=== PATIENT | female | born 1940 | race African-American/Black ===

== ENCOUNTER → 2016-11-07 | Outpatient (CLI) | payer OTHER ==
[2016-02-21 11:03] VITALS: BP 152/87
[~2016-11-07] MED LIST: ALLO300T PO; CALC0.25 PO; CARV12.52 PO; CETI10TA16 PO; CIPR250T30 PO; DORZ10DR3 EACHEYE; HYDR-2666 PO; ISOS1TAB2 PO; LEVO100T PO; LOSA25TA4 PO; WARF3TAB54 PO
[2016-11-07 10:23] LABS: BASO % 1 % (0-3); EOS % 5 % (0-3); HEMOGLOBIN 14.1 g/dL (12.0-15.5); LYMPH # 0.9 x10^3/uL (1.0-4.8); LYMPH % 24 % (24-48); MEAN CORPUSCULAR HEMOGLOBIN 29 pg (25-35); MEAN CORPUSCULAR HGB CONC 33 g/dL (31-37); MEAN CORPUSCULAR VOLUME 87 fL (79-100); MONO % 11 % (0-9); NEUT % 59 % (31-73); PLATELET COUNT 191 x10^3/uL (140-400); RED BLOOD COUNT 4.93 x10^6/uL (3.50-5.40); RED CELL DISTRIBUTION WIDTH 13.7 % (11.5-14.5); WHITE BLOOD COUNT 3.8 x10^3/uL (4.0-11.0)
[2016-11-07 10:29] LABS: ALBUMIN 3.2 g/dL (3.4-5.0); CREATININE 2.1 mg/dL (0.6-1.0); GFR 27.8; MAGNESIUM 1.7 mg/dL (1.8-2.4); POTASSIUM 4.3 mmol/L (3.5-5.1)
[2016-11-07 12:41] LABS: PLT ESTIMATE ADEQUATE (ADEQUATE)
[2016-11-08 14:34] LABS: PTH INTACT 82 pg/mL (15-65)
== END | disposition home or self-care (01) ==
LOC: LAB 09:43
PROVIDERS: ATTEND Nurse Practitioner Family
DX: I12.9 Hypertensive chronic kidney disease with stage 1 through stage 4 chronic kidney disease, or unspecified chronic kidney disease (principal); N28.1 Cyst of kidney, acquired; N18.4 Chronic kidney disease, stage 4 (severe); D30.00 Benign neoplasm of unspecified kidney; E87.2 Acidosis; Z68.31 Body mass index [BMI] 31.0-31.9, adult; Z90.5 Acquired absence of kidney
CPT/HCPCS: 36415; 80069; 83735; 83970; 85007; 85027

== ENCOUNTER 2017-09-16 00:04 | Inpatient (IN) | payer MEDICARE, OTHER ==
[2017-09-16 00:33] LABS: BASO % 0 % (0-3); EOS % 0 % (0-3); HEMATOCRIT 44.9 % (36.0-47.0); HEMOGLOBIN 14.6 g/dL (12.0-15.5); LYMPH # 0.1 x10^3/uL (1.0-4.8); LYMPH % 2 % (24-48); MEAN CORPUSCULAR HEMOGLOBIN 29 pg (25-35); MEAN CORPUSCULAR HGB CONC 32 g/dL (31-37); MEAN CORPUSCULAR VOLUME 89 fL (79-100); MONO # 0.2 x10^3/uL (0.0-1.1); MONO % 4 % (0-9); NEUT # 5.5 x10^3uL (1.8-7.7); NEUT % 93 % (31-73); PLATELET COUNT 138 x10^3/uL (140-400); RED BLOOD COUNT 5.05 x10^6/uL (3.50-5.40); RED CELL DISTRIBUTION WIDTH 14.2 % (11.5-14.5); WHITE BLOOD COUNT 5.9 x10^3/uL (4.0-11.0)
[2017-09-16 00:41] LABS: ANION GAP 10 (6-14); BLOOD UREA NITROGEN 24 mg/dL (7-20); BUN/CREATININE RATIO 12 (6-20); CALCIUM 9.6 mg/dL (8.5-10.1); CARBON DIOXIDE 24 mmol/L (21-32); CHLORIDE 108 mmol/L (98-107); GFR 29.3; GLUCOSE 115 mg/dL (70-99); POTASSIUM 3.5 mmol/L (3.5-5.1); SODIUM 142 mmol/L (136-145)
[2017-09-16 00:47] LABS: ALBUMIN 3.3 g/dL (3.4-5.0); ALBUMIN/GLOBULIN RATIO 0.8 (1.0-1.7); ALK PHOS 162 U/L (46-116); ALT (SGPT) 346 U/L (14-59); AST (SGOT) 581 U/L (15-37); LIPASE 144 U/L (73-393); TOTAL BILIRUBIN 3.3 mg/dL (0.2-1.0); TOTAL PROTEIN 7.3 g/dL (6.4-8.2)
[2017-09-16 00:48] LABS: BILIRUBIN,URINE SMALL (NEG); CLARITY,URINE CLEAR; COLOR,URINE YELLOW; GLUCOSE,URINE NEGATIVE (NEG); NITRITE,URINE NEGATIVE (NEG); PROTEIN,URINE NEGATIVE (NEG-TRACE); UROBILINOGEN,URINE >=8.0 mg/dL (0.2 mg/dL)
[2017-09-16 00:49] LABS: ADD MAN DIFF? YES
[2017-09-16 00:55] LABS: TROPONINI < 0.017 ng/mL (0.000-0.055)
[2017-09-16 00:55] LABS: CKMB INDEX 1.1 % (0-4); CKMB MASS 1.2 ng/mL (0.0-3.6); CREATINE KINASE 111 U/L (26-192)
[2017-09-16] MEDS: IV NORMAL SALINE 1000ML BAG 1,000 ML IV ×3 (00:55→15:23)
[2017-09-16] MEDS: ONDANSETRON PF 4 MG/2 ML VIAL. IV (00:55)
[2017-09-16 00:59] LABS: BACTERIA,URINE 0 /HPF (0-FEW); RBC,URINE 0 /HPF (0-2); SQUAMOUS EPITHELIAL CELL,UR FEW /LPF; WBC,URINE 0 /HPF (0-4)
[2017-09-16 01:30] LABS: INFLUENZA A PATIENT NEGATIVE (NEGATIVE); INFLUENZA B PATIENT NEGATIVE (NEGATIVE); OBC FLU VALID
[2017-09-16 01:39] LABS: % BANDS 16 % (0-9); % EOS 2 % (0-5); % LYMPHS 1 % (24-48); % MONOS 7 % (0-10); % SEGS 74 % (35-66); PLT ESTIMATE ADEQUATE (ADEQUATE); TOXIC GRANULATION SLIGHT; TOXIC VACUOLATION SLIGHT
[2017-09-16] MEDS: ACETAMINOPHEN 500 MG TABLET PO (02:09)
[2017-09-16] MEDS ORDERED: ONDANSETRON PF 4 MG/2 ML VIAL. IV ×2 (03:00→09:30)
[2017-09-16 05:15] LABS: LACTIC ACID 1.9 mmol/L (0.4-2.0)
[2017-09-16] MEDS ORDERED: MORPHINE SULFATE 4 MG/ML DISP.SYRIN. IV (09:30)
[2017-09-16] MEDS ORDERED: traMADol 50 MG TABLET PO (09:30)
[2017-09-16] MEDS ORDERED: DOCUSATE SODIUM 100 MG CAPSULE. PO (09:30)
[2017-09-16 09:50] LABS: INR 3.8 (0.8-1.1); PROTHROMBIN TIME PATIENT 36.5 SEC (11.7-14.0)
[2017-09-16] MEDS: CALCITRIOL 0.25 MCG CAPSULE. PO (10:00)
[2017-09-16] MEDS: LOSARTAN POTASSIUM 25 MG TABLET. PO (10:00)
[2017-09-16] MEDS: ALLOPURINOL 100 MG TABLET. PO (10:00)
[2017-09-16] MEDS: DORZOLAMIDE 2% OPHTH SOLUTION 10ML BOTTLE. OU (10:00)
[2017-09-16] MEDS: LEVOTHYROXINE 100 MCG TABLET PO (10:41)
[2017-09-16] MEDS: CEFEPIME HCL IV Push 1 GM VIAL. IVP (10:41)
[2017-09-16] MEDS: CETIRIZINE HCL 10 MG TABLET. PO (10:42)
[2017-09-16] MEDS: CARVEDILOL 12.5 MG TABLET. PO ×2 (10:42→16:52)
[2017-09-16] MEDS: SODIUM BICARBONATE 650 MG TABLET. PO ×2 (10:43→20:25)
[2017-09-16] MEDS: LACTOBACILLUS RHAMNOSUS GG 1 CAPSULE. PO ×2 (12:02→20:25)
[2017-09-16] MEDS ORDERED: CEFEPIME HCL 1 GM in IV DEXTROSE 5% 50 ML IV (14:00)
[2017-09-16] MEDS: ACETAMINOPHEN 325 MG TABLET. PO (20:25)
[2017-09-16] MEDS: hydrALAZINE 20 MG/ML VIAL. IVP (20:26)
[2017-09-16] MEDS: COMBIGAN EYE DROPS OU (20:43)
[2017-09-16] MEDS: TRAVATAN EYE DROPS OU (20:43)
[2017-09-17] MEDS: IV NORMAL SALINE 1000ML BAG 1,000 ML IV ×2 (03:04→21:58)
[2017-09-17 04:26] LABS: ADD MAN DIFF? NO
[2017-09-17 04:29] LABS: BASO % 0 % (0-3); EOS # 0.1 x10^3/uL (0.0-0.7); EOS % 1 % (0-3); HEMOGLOBIN 13.2 g/dL (12.0-15.5); LYMPH # 0.6 x10^3/uL (1.0-4.8); LYMPH % 7 % (24-48); MEAN CORPUSCULAR HEMOGLOBIN 29 pg (25-35); MEAN CORPUSCULAR HGB CONC 32 g/dL (31-37); MEAN CORPUSCULAR VOLUME 89 fL (79-100); MONO # 0.8 x10^3/uL (0.0-1.1); MONO % 9 % (0-9); NEUT # 7.2 x10^3uL (1.8-7.7); NEUT % 83 % (31-73); PLATELET COUNT 128 x10^3/uL (140-400); RED BLOOD COUNT 4.62 x10^6/uL (3.50-5.40); RED CELL DISTRIBUTION WIDTH 13.8 % (11.5-14.5); WHITE BLOOD COUNT 8.6 x10^3/uL (4.0-11.0)
[2017-09-17 04:41] LABS: INR 3.3 (0.8-1.1)
[2017-09-17 04:53] LABS: ALBUMIN 2.7 g/dL (3.4-5.0); ALK PHOS 112 U/L (46-116); ALT (SGPT) 203 U/L (14-59); ANION GAP 8 (6-14); AST (SGOT) 126 U/L (15-37); BLOOD UREA NITROGEN 21 mg/dL (7-20); CARBON DIOXIDE 24 mmol/L (21-32); CHLORIDE 109 mmol/L (98-107); CREATININE 1.9 mg/dL (0.6-1.0); DIRECT BILIRUBIN 2.1 mg/dL (0.0-0.2); GFR 31.1; GLUCOSE 84 mg/dL (70-99); SODIUM 141 mmol/L (136-145); TOTAL BILIRUBIN 3.3 mg/dL (0.2-1.0); TOTAL PROTEIN 6.4 g/dL (6.4-8.2)
[2017-09-17] MEDS ORDERED: WARFARIN 3 MG TABLET. PO (09:00)
[2017-09-17] MEDS: COMBIGAN EYE DROPS OU ×2 (09:00→21:04)
[2017-09-17] MEDS: LACTOBACILLUS RHAMNOSUS GG 1 CAPSULE. PO ×2 (11:33→20:59)
[2017-09-17] MEDS: CEFEPIME HCL IV Push 1 GM VIAL. IVP (11:33)
[2017-09-17] MEDS: CETIRIZINE HCL 10 MG TABLET. PO (11:33)
[2017-09-17] MEDS: SODIUM BICARBONATE 650 MG TABLET. PO ×2 (11:33→20:59)
[2017-09-17] MEDS: LEVOTHYROXINE 100 MCG TABLET PO (11:33)
[2017-09-17] MEDS: CARVEDILOL 12.5 MG TABLET. PO ×2 (11:34→17:08)
[2017-09-17] MEDS: ISOSORBIDE DINITRATE 10 MG TABLET. PO ×2 (13:59→21:00)
[2017-09-17] MEDS: hydrALAZINE 25 MG TABLET PO ×2 (14:02→20:58)
[2017-09-17] MEDS ORDERED: HYDRALAZINE HCL PO (21:00)
[2017-09-17] MEDS ORDERED: ISOSORB DINIT PO (21:00)
[2017-09-17] MEDS: TRAVATAN EYE DROPS OU (21:04)
[2017-09-18 06:53] LABS: ADD MAN DIFF? NO
[2017-09-18 07:00] LABS: BASO % 0 % (0-3); EOS # 0.1 x10^3/uL (0.0-0.7); EOS % 2 % (0-3); HEMATOCRIT 37.2 % (36.0-47.0); HEMOGLOBIN 11.9 g/dL (12.0-15.5); LYMPH % 15 % (24-48); MEAN CORPUSCULAR HEMOGLOBIN 28 pg (25-35); MEAN CORPUSCULAR HGB CONC 32 g/dL (31-37); MEAN CORPUSCULAR VOLUME 89 fL (79-100); MONO # 0.7 x10^3/uL (0.0-1.1); MONO % 10 % (0-9); NEUT # 4.8 x10^3uL (1.8-7.7); NEUT % 73 % (31-73); PLATELET COUNT 125 x10^3/uL (140-400); WHITE BLOOD COUNT 6.6 x10^3/uL (4.0-11.0)
[2017-09-18] MEDS: LEVOTHYROXINE 100 MCG TABLET PO (07:10)
[2017-09-18 07:14] LABS: INR 2.3 (0.8-1.1); PROTHROMBIN TIME PATIENT 24.7 SEC (11.7-14.0)
[2017-09-18 07:20] LABS: ALBUMIN 2.5 g/dL (3.4-5.0); ALK PHOS 91 U/L (46-116); ALT (SGPT) 119 U/L (14-59); ANION GAP 7 (6-14); AST (SGOT) 50 U/L (15-37); BLOOD UREA NITROGEN 27 mg/dL (7-20); CALCIUM 8.6 mg/dL (8.5-10.1); CARBON DIOXIDE 23 mmol/L (21-32); CHLORIDE 111 mmol/L (98-107); CREATININE 1.9 mg/dL (0.6-1.0); DIRECT BILIRUBIN 0.5 mg/dL (0.0-0.2); GFR 31.1; GLUCOSE 93 mg/dL (70-99); POTASSIUM 3.9 mmol/L (3.5-5.1); SODIUM 141 mmol/L (136-145); TOTAL BILIRUBIN 1.3 mg/dL (0.2-1.0); TOTAL PROTEIN 5.9 g/dL (6.4-8.2)
[2017-09-18] MEDS: hydrALAZINE 25 MG TABLET PO ×2 (08:03→20:36)
[2017-09-18] MEDS: CETIRIZINE HCL 10 MG TABLET. PO (08:04)
[2017-09-18] MEDS: LACTOBACILLUS RHAMNOSUS GG 1 CAPSULE. PO ×2 (08:05→20:38)
[2017-09-18] MEDS: SODIUM BICARBONATE 650 MG TABLET. PO ×2 (08:05→20:37)
[2017-09-18] MEDS: ISOSORBIDE DINITRATE 10 MG TABLET. PO ×2 (08:05→20:37)
[2017-09-18] MEDS: COMBIGAN EYE DROPS OU ×2 (08:07→20:35)
[2017-09-18] MEDS: CARVEDILOL 12.5 MG TABLET. PO ×2 (08:08→17:24)
[2017-09-18] MEDS: CEFEPIME HCL IV Push 1 GM VIAL. IVP (09:29)
[2017-09-18] MEDS: IV NORMAL SALINE 1000ML BAG 1,000 ML IV (10:45)
[2017-09-18] MEDS: POLYETHYLENE GLYCOL 3350 17 GM PACKET. PO (12:00)
[2017-09-18] MEDS: PANTOPRAZOLE 40 MG TABLET.DR. PO (12:30)
[2017-09-18] MEDS: TRAVATAN EYE DROPS OU (20:35)
[2017-09-19 04:46] LABS: ADD MAN DIFF? NO
[2017-09-19 04:55] LABS: BASO % 1 % (0-3); EOS # 0.2 x10^3/uL (0.0-0.7); EOS % 3 % (0-3); HEMATOCRIT 36.4 % (36.0-47.0); HEMOGLOBIN 11.8 g/dL (12.0-15.5); LYMPH # 1.1 x10^3/uL (1.0-4.8); LYMPH % 20 % (24-48); MEAN CORPUSCULAR HEMOGLOBIN 29 pg (25-35); MEAN CORPUSCULAR HGB CONC 33 g/dL (31-37); MEAN CORPUSCULAR VOLUME 89 fL (79-100); MONO # 0.8 x10^3/uL (0.0-1.1); MONO % 15 % (0-9); NEUT # 3.3 x10^3uL (1.8-7.7); NEUT % 62 % (31-73); PLATELET COUNT 136 x10^3/uL (140-400); RED BLOOD COUNT 4.11 x10^6/uL (3.50-5.40); RED CELL DISTRIBUTION WIDTH 13.9 % (11.5-14.5); WHITE BLOOD COUNT 5.4 x10^3/uL (4.0-11.0)
[2017-09-19 05:02] LABS: INR 1.7 (0.8-1.1); PROTHROMBIN TIME PATIENT 19.6 SEC (11.7-14.0)
[2017-09-19 05:25] LABS: ALBUMIN 2.6 g/dL (3.4-5.0); ALBUMIN/GLOBULIN RATIO 0.7 (1.0-1.7); ALK PHOS 91 U/L (46-116); ALT (SGPT) 96 U/L (14-59); ANION GAP 8 (6-14); AST (SGOT) 32 U/L (15-37); BLOOD UREA NITROGEN 23 mg/dL (7-20); BUN/CREATININE RATIO 12 (6-20); CALCIUM 9.1 mg/dL (8.5-10.1); CARBON DIOXIDE 24 mmol/L (21-32); CHLORIDE 112 mmol/L (98-107); CREATININE 1.9 mg/dL (0.6-1.0); GFR 31.1; GLUCOSE 87 mg/dL (70-99); POTASSIUM 3.6 mmol/L (3.5-5.1); SODIUM 144 mmol/L (136-145); TOTAL PROTEIN 6.1 g/dL (6.4-8.2)
[2017-09-19] MEDS: LEVOTHYROXINE 100 MCG TABLET PO (05:55)
[2017-09-19] MEDS: POLYETHYLENE GLYCOL 3350 17 GM PACKET. PO (09:00)
[2017-09-19] MEDS: hydrALAZINE 25 MG TABLET PO ×2 (09:13→20:41)
[2017-09-19] MEDS: ISOSORBIDE DINITRATE 10 MG TABLET. PO ×2 (09:15→20:41)
[2017-09-19] MEDS: CARVEDILOL 12.5 MG TABLET. PO ×2 (09:16→17:38)
[2017-09-19] MEDS: LACTOBACILLUS RHAMNOSUS GG 1 CAPSULE. PO ×2 (09:16→20:42)
[2017-09-19] MEDS: PANTOPRAZOLE 40 MG TABLET.DR. PO (09:16)
[2017-09-19] MEDS: SODIUM BICARBONATE 650 MG TABLET. PO ×2 (09:17→20:42)
[2017-09-19] MEDS: CETIRIZINE HCL 10 MG TABLET. PO (09:17)
[2017-09-19] MEDS: COMBIGAN EYE DROPS OU ×2 (09:20→21:00)
[2017-09-19] MEDS: CEFEPIME HCL IV Push 1 GM VIAL. IVP (09:20)
[2017-09-19] MEDS: WARFARIN 3 MG TABLET. PO (17:38)
[2017-09-19] MEDS: TRAVATAN EYE DROPS OU (21:00)
[2017-09-20 04:57] LABS: INR 1.4 (0.8-1.1); PROTHROMBIN TIME PATIENT 16.8 SEC (11.7-14.0)
[2017-09-20 07:25] LABS: POC GLUCOSE 102 mg/dL (70-99)
[2017-09-20] MEDS: CARVEDILOL 12.5 MG TABLET. PO ×2 (08:00→17:00)
[2017-09-20] MEDS: PANTOPRAZOLE 40 MG TABLET.DR. PO (08:21)
[2017-09-20] MEDS: CETIRIZINE HCL 10 MG TABLET. PO (08:22)
[2017-09-20] MEDS: LACTOBACILLUS RHAMNOSUS GG 1 CAPSULE. PO ×2 (08:22→21:14)
[2017-09-20] MEDS: ISOSORBIDE DINITRATE 10 MG TABLET. PO ×2 (08:22→21:12)
[2017-09-20] MEDS: ACETAMINOPHEN 325 MG TABLET. PO (08:23)
[2017-09-20] MEDS: hydrALAZINE 25 MG TABLET PO ×2 (08:23→21:13)
[2017-09-20] MEDS: POLYETHYLENE GLYCOL 3350 17 GM PACKET. PO (08:23)
[2017-09-20] MEDS: SODIUM BICARBONATE 650 MG TABLET. PO ×2 (08:24→21:13)
[2017-09-20] MEDS: COMBIGAN EYE DROPS OU ×2 (08:28→21:00)
[2017-09-20] MEDS: CEFEPIME HCL IV Push 1 GM VIAL. IVP (11:02)
[2017-09-20] MEDS: LEVOTHYROXINE 100 MCG TABLET PO (11:02)
[2017-09-20] MEDS: WARFARIN 3 MG TABLET. PO (16:48)
[2017-09-20] MEDS: TRAVATAN EYE DROPS OU (21:00)
[2017-09-21] MEDS: LEVOTHYROXINE 100 MCG TABLET PO (05:18)
[2017-09-21 05:22] LABS: ADD MAN DIFF? NO
[2017-09-21 05:29] LABS: BASO # 0.1 x10^3/uL (0.0-0.2); BASO % 1 % (0-3); EOS # 0.2 x10^3/uL (0.0-0.7); EOS % 4 % (0-3); HEMATOCRIT 38.2 % (36.0-47.0); HEMOGLOBIN 12.3 g/dL (12.0-15.5); LYMPH # 1.3 x10^3/uL (1.0-4.8); LYMPH % 25 % (24-48); MEAN CORPUSCULAR HEMOGLOBIN 28 pg (25-35); MEAN CORPUSCULAR HGB CONC 32 g/dL (31-37); MEAN CORPUSCULAR VOLUME 88 fL (79-100); MONO # 0.7 x10^3/uL (0.0-1.1); MONO % 14 % (0-9); NEUT % 57 % (31-73); PLATELET COUNT 155 x10^3/uL (140-400); RED BLOOD COUNT 4.35 x10^6/uL (3.50-5.40); RED CELL DISTRIBUTION WIDTH 13.7 % (11.5-14.5); WHITE BLOOD COUNT 5.4 x10^3/uL (4.0-11.0)
[2017-09-21 05:52] LABS: INR 1.3 (0.8-1.1); PROTHROMBIN TIME PATIENT 15.8 SEC (11.7-14.0)
[2017-09-21 06:03] LABS: ALBUMIN 2.7 g/dL (3.4-5.0); ALBUMIN/GLOBULIN RATIO 0.7 (1.0-1.7); ALK PHOS 81 U/L (46-116); ALT (SGPT) 52 U/L (14-59); ANION GAP 9 (6-14); AST (SGOT) 20 U/L (15-37); BLOOD UREA NITROGEN 17 mg/dL (7-20); BUN/CREATININE RATIO 10 (6-20); CALCIUM 8.9 mg/dL (8.5-10.1); CARBON DIOXIDE 26 mmol/L (21-32); CHLORIDE 109 mmol/L (98-107); CREATININE 1.7 mg/dL (0.6-1.0); GFR 35.4; GLUCOSE 90 mg/dL (70-99); POTASSIUM 3.7 mmol/L (3.5-5.1); SODIUM 144 mmol/L (136-145); TOTAL BILIRUBIN 0.9 mg/dL (0.2-1.0); TOTAL PROTEIN 6.4 g/dL (6.4-8.2)
[2017-09-21] MEDS: PANTOPRAZOLE 40 MG TABLET.DR. PO (07:44)
[2017-09-21] MEDS: hydrALAZINE 25 MG TABLET PO ×2 (07:45→20:48)
[2017-09-21] MEDS: ISOSORBIDE DINITRATE 10 MG TABLET. PO ×2 (07:47→20:48)
[2017-09-21] MEDS: COMBIGAN EYE DROPS OU ×2 (09:00→21:00)
[2017-09-21] MEDS: POLYETHYLENE GLYCOL 3350 17 GM PACKET. PO (09:00)
[2017-09-21] MEDS: SODIUM BICARBONATE 650 MG TABLET. PO ×2 (09:06→20:48)
[2017-09-21] MEDS: LACTOBACILLUS RHAMNOSUS GG 1 CAPSULE. PO ×2 (09:06→20:48)
[2017-09-21] MEDS: CARVEDILOL 12.5 MG TABLET. PO ×2 (09:06→17:35)
[2017-09-21] MEDS: CETIRIZINE HCL 10 MG TABLET. PO (09:12)
[2017-09-21] MEDS: CEFEPIME HCL IV Push 1 GM VIAL. IVP (09:57)
[2017-09-21] MEDS: hydrALAZINE 20 MG/ML VIAL. IVP (17:36)
[2017-09-21] MEDS: TRAVATAN EYE DROPS OU (21:00)
[2017-09-22 05:49] LABS: INR 1.3 (0.8-1.1); PROTHROMBIN TIME PATIENT 15.7 SEC (11.7-14.0)
[2017-09-22] MEDS: LEVOTHYROXINE 100 MCG TABLET PO (06:00)
[2017-09-22] MEDS ORDERED: PROCHLORPERAZINE 10 MG/2 ML VIAL. IV (07:00)
[2017-09-22] MEDS ORDERED: ONDANSETRON PF 4 MG/2 ML VIAL. IV (07:00)
[2017-09-22] MEDS ORDERED: MORPHINE SULFATE 4 MG/ML DISP.SYRIN. IV (07:00)
[2017-09-22] MEDS ORDERED: fentaNYL PF VIAL 100 MCG/2 ML VIAL IV ×2 (07:00)
[2017-09-22] MEDS ORDERED: HYDROmorphone 2 MG/ML VIAL IV (07:00)
[2017-09-22] MEDS ORDERED: LIDOCAINE 1% PF 2 ML VIAL. ID (07:00)
[2017-09-22] MEDS: PANTOPRAZOLE 40 MG TABLET.DR. PO (07:30)
[2017-09-22] MEDS: ISOSORBIDE DINITRATE 10 MG TABLET. PO ×2 (08:01→22:41)
[2017-09-22] MEDS: CARVEDILOL 12.5 MG TABLET. PO ×2 (08:01→22:42)
[2017-09-22] MEDS: COMBIGAN EYE DROPS OU ×2 (08:02→20:23)
[2017-09-22] MEDS: hydrALAZINE 25 MG TABLET PO ×3 (08:02→22:40)
[2017-09-22] MEDS: POLYETHYLENE GLYCOL 3350 17 GM PACKET. PO (09:00)
[2017-09-22] MEDS: SODIUM BICARBONATE 650 MG TABLET. PO ×2 (09:00→22:41)
[2017-09-22] MEDS: CETIRIZINE HCL 10 MG TABLET. PO (09:00)
[2017-09-22] MEDS: LACTOBACILLUS RHAMNOSUS GG 1 CAPSULE. PO ×2 (09:00→22:41)
[2017-09-22] MEDS: CEFEPIME HCL IV Push 1 GM VIAL. IVP (10:07)
[2017-09-22] MEDS: IV NORMAL SALINE 1000ML BAG 1,000 ML IV (16:28)
[2017-09-22] MEDS ORDERED: IOHEXOL 300 MG/ML 100ML VIAL. (17:17)
[2017-09-22] MEDS: IOHEXOL 300 MG/ML 100ML VIAL. INT CAT (17:58)
[2017-09-22] MEDS ORDERED: hydrALAZINE 20 MG/ML VIAL. (18:44)
[2017-09-22] MEDS: hydrALAZINE 20 MG/ML VIAL. IVP (18:54)
[2017-09-22] MEDS: TRAVATAN EYE DROPS OU (20:23)
[2017-09-22] MEDS: IV RINGERS,LACTATED 1000ML 1,000 ML IV (20:32)
[2017-09-23] MEDS: HYDROcodone/APAP 5/325MG 1 TAB TABLET PO (01:54)
[2017-09-23] MEDS: LEVOTHYROXINE 100 MCG TABLET PO (06:00)
[2017-09-23 06:05] LABS: INR 1.2 (0.8-1.1); PROTHROMBIN TIME PATIENT 14.9 SEC (11.7-14.0)
[2017-09-23] MEDS: CARVEDILOL 12.5 MG TABLET. PO (07:50)
[2017-09-23] MEDS: PANTOPRAZOLE 40 MG TABLET.DR. PO (07:50)
[2017-09-23] MEDS: hydrALAZINE 25 MG TABLET PO (07:51)
[2017-09-23] MEDS: ISOSORBIDE DINITRATE 10 MG TABLET. PO (07:54)
[2017-09-23] MEDS: LACTOBACILLUS RHAMNOSUS GG 1 CAPSULE. PO (08:43)
[2017-09-23] MEDS: COMBIGAN EYE DROPS OU (08:43)
[2017-09-23] MEDS: POLYETHYLENE GLYCOL 3350 17 GM PACKET. PO (08:43)
[2017-09-23] MEDS: SODIUM BICARBONATE 650 MG TABLET. PO (08:44)
[2017-09-23] MEDS: CETIRIZINE HCL 10 MG TABLET. PO (08:44)
[2017-09-23] MEDS: CEFEPIME HCL IV Push 1 GM VIAL. IVP (09:21)
[2017-09-23] MEDS: IV NORMAL SALINE 1000ML BAG 1,000 ML IV (12:00)
[2017-09-23] MEDS ORDERED: CARVEDILOL 12.5 MG TABLET. PO (17:00)
== END 2017-09-23 14:00 | disposition home or self-care (01) | DRG 445 ==
LOC: ER 00:04 → 5 NORTH 03:15
PROVIDERS: Internal Medicine
PROC: BF101ZZ Fluoroscopy of Bile Ducts using Low Osmolar Contrast (ICD-10-PCS; principal; 2017-09-22 17:40)
PROC: 0F798ZZ Dilation of Common Bile Duct, Via Natural or Artificial Opening Endoscopic (ICD-10-PCS; 2017-09-22 17:40)
DX: K80.31 Calculus of bile duct with cholangitis, unspecified, with obstruction (principal); N18.4 Chronic kidney disease, stage 4 (severe); D68.9 Coagulation defect, unspecified; I48.91 Unspecified atrial fibrillation; R65.10 Systemic inflammatory response syndrome (SIRS) of non-infectious origin without acute organ dysfunction; N17.9 Acute kidney failure, unspecified; E86.0 Dehydration; E03.9 Hypothyroidism, unspecified; I12.9 Hypertensive chronic kidney disease with stage 1 through stage 4 chronic kidney disease, or unspecified chronic kidney disease; K21.9 Gastro-esophageal reflux disease without esophagitis; K42.9 Umbilical hernia without obstruction or gangrene; M19.90 Unspecified osteoarthritis, unspecified site; Z79.899 Other long term (current) drug therapy; Z90.49 Acquired absence of other specified parts of digestive tract; Z90.5 Acquired absence of kidney; Z88.0 Allergy status to penicillin
CPT/HCPCS: 36415; 51701; 71045; 74176; 74181; 74328; 80048; 80053; 80076; 81001; 82553; 82962; 83605; 83690; 84484; 85007; 85025; 85610; 87040; 87804; 87804-59; 93005; 96361; 96365; 96366; 96375; 97161-GP; 97166-GO; 99285; 99285-25; C1757; J0360; J0692; J1956; J2405; J7030; Q9967

== ENCOUNTER 2018-12-19 13:13 | Emergency (ER) | payer OTHER ==
[~2018-12-19] VITALS: Ht 160 cm; Wt 73.0 kg
[~2018-12-19 13:13] MED LIST changes: +BRIM5DRO2 OP; +CARV12.511 PO; -CARV12.52 PO; -DORZ10DR3 EACHEYE; +DORZ10DR6 EACHEYE; -HYDR-2666 PO; +HYDR-2761 PO; +HYDR-2868 PO; +ISOS30TA4 PO; -LOSA25TA4 PO; +LOSA25TA54 PO; +SODI650T PO; +TRAV5DRO EACHEYE
--- NOTE | 2018-12-19 14:57 | PHYS DOC ---
Past Medical History Past Medical History: A-Fib, Arthritis, Hypertension, Hypothyroid Additional Past Medical Histor: Thyroid Past Surgical History: Cholecystectomy, Other Additional Past Surgical Histo: L. NEPHRECTOMY Alcohol Use: None Drug Use: None Adult General Chief Complaint Chief Complaint: ABDOMINAL PAIN HPI HPI Patient is a 78 year old female who presents with intermittent abdominal pain has been ongoing since Monday. The patient states she had the same pain 6-7 months ago and ended up being admitted to the hospital for a blocked gallbladder duct. Patient currently has no pain and no symptoms. Her pain as 0 out of 10. States she took an [place] at home which made her pain disappear. Review of Systems Review of Systems Constitutional: Denies fever or chills [] Eyes: Denies change in visual acuity, redness, or eye pain [] HENT: Denies nasal congestion or sore throat [] Respiratory: Denies cough or shortness of breath [] Cardiovascular: No additional information not addressed in HPI [] GI: Reports abdominal pain intermittently Denies nausea, vomiting, bloody stools or diarrhea [] : Denies dysuria or hematuria [] Musculoskeletal: Denies back pain or joint pain [] Integument: Denies rash or skin lesions [] Neurologic: Denies headache, focal weakness or sensory changes [] Endocrine: Denies polyuria or polydipsia [] Complete systems were reviewed and found to be within normal limits, except as documented in this note. Allergies Allergies Allergies Coded Allergies Type Severity Reaction Last Updated Verified Penicillins Allergy Intermediate RASH 09/22/17 Yes Physical Exam Physical Exam Constitutional: Well developed, well nourished, no acute distress, non-toxic appearance. [] HENT: Normocephalic, atraumatic, bilateral external ears normal, oropharynx moist, no oral exudates, nose normal. [] Eyes: PERRLA, EOMI, conjunctiva normal, no discharge. [] Neck: Normal range of motion, no tenderness, supple, no stridor. [] Cardiovascular:Heart rate regular rhythm, no murmur [] Lungs & Thorax: Bilateral breath sounds clear to auscultation [] Abdomen: Bowel sounds normal, soft, no tenderness, no masses, no pulsatile masses. [] Skin: Warm, dry, no erythema, no rash. [] Back: No tenderness, no CVA tenderness. [] Extremities: No tenderness, no cyanosis, no clubbing, ROM intact, no edema. [] Neurologic: Alert and oriented X 3, normal motor function, normal sensory function, no focal deficits noted. [] Psychologic: Affect normal, judgement normal, mood normal. [] Current Patient Data Vital Signs Vital Signs Date Time Temp Pulse Resp B/P (MAP) Pulse Ox O2 Delivery O2 Flow Rate FiO2 12/19/18 17:27 54 20 177/94 (121) 97 Room Air 12/19/18 14:22 97.9 97.9 Lab Values Laboratory Tests Test 12/19/18 15:15 12/19/18 18:20 White Blood Count 4.7 x10^3/uL (4.0-11.0) Red Blood Count 5.26 x10^6/uL (3.50-5.40) Hemoglobin 15.4 g/dL (12.0-15.5) Hematocrit 46.6 % (36.0-47.0) Mean Corpuscular Volume 89 fL (79-100) Mean Corpuscular Hemoglobin 29 pg (25-35) Mean Corpuscular Hemoglobin Concent 33 g/dL (31-37) Red Cell Distribution Width 13.8 % (11.5-14.5) Platelet Count 211 x10^3/uL (140-400) Neutrophils (%) (Auto) 65 % (31-73) Lymphocytes (%) (Auto) 21 % (24-48) L Monocytes (%) (Auto) 12 % (0-9) H Eosinophils (%) (Auto) 1 % (0-3) Basophils (%) (Auto) 1 % (0-3) Neutrophils # (Auto) 3.0 x10^3uL (1.8-7.7) Lymphocytes # (Auto) 1.0 x10^3/uL (1.0-4.8) Monocytes # (Auto) 0.5 x10^3/uL (0.0-1.1) Eosinophils # (Auto) 0.0 x10^3/uL (0.0-0.7) Basophils # (Auto) 0.1 x10^3/uL (0.0-0.2) Sodium Level 141 mmol/L (136-145) Potassium Level 4.2 mmol/L (3.5-5.1) Chloride Level 106 mmol/L (98-107) Carbon Dioxide Level 26 mmol/L (21-32) Anion Gap 9 (6-14) Blood Urea Nitrogen 17 mg/dL (7-20) Creatinine 2.2 mg/dL (0.6-1.0) H Estimated GFR (Cockcroft-Gault) 26.2 BUN/Creatinine Ratio 8 (6-20) Glucose Level 98 mg/dL (70-99) Calcium Level 9.8 mg/dL (8.5-10.1) Total Bilirubin 1.1 mg/dL (0.2-1.0) H Aspartate Amino Transferase (AST) 70 U/L (15-37) H Alanine Aminotransferase (ALT) 69 U/L (14-59) H Alkaline Phosphatase 121 U/L (46-116) H Total Protein 7.9 g/dL (6.4-8.2) Albumin 3.6 g/dL (3.4-5.0) Albumin/Globulin Ratio 0.8 (1.0-1.7) L Lipase 164 U/L (73-393) Urine Collection Type Unknown Urine Color Yellow Urine Clarity Clear Urine pH 7.0 Urine Specific [place] 1.010 Urine Protein Negative mg/dL (NEG-TRACE) Urine Glucose (UA) Negative mg/dL (NEG) Urine Ketones (Stick) Negative mg/dL (NEG) Urine Blood Negative (NEG) Urine Nitrite Negative (NEG) Urine Bilirubin Negative (NEG) Urine Urobilinogen Dipstick 1.0 mg/dL (0.2 mg/dL) Urine Leukocyte Esterase Negative (NEG) Urine RBC 0 /HPF (0-2) Urine WBC Rare /HPF (0-4) Urine Squamous Epithelial Cells Mod /LPF Urine Bacteria 0 /HPF (0-FEW) Urine Mucus Slight /LPF Laboratory Tests 12/19/18 15:15 Laboratory Tests 12/19/18 15:15 EKG EKG [] Radiology/Procedures Radiology/Procedures [][facility] [address] [facility] [place] [address] IMAGING REPORT Signed PATIENT: LASHAWN HINOJOSA ACCOUNT: [id number] : 1940 LOCATION: ER AGE: 78 SEX: F EXAM STATUS: REG ER ORD. PHYSICIAN: HERMINIO ALMANZA APRN REASON: abd pain PROCEDURE: CT ABDOMEN PELVIS WO CONTRAST Examination: CT ABDOMEN PELVIS WO CONTRAST History: Abdominal pain Comparison/Correlation: 09/16/2017 CT abdomen and pelvis without contrast Findings: Axial images of the abdomen and pelvis were obtained without contrast. Sagittal and coronal reformatted images were provided. Due to low GFR, IV contrast was not provided. Centrilobular emphysematous involvement of the lung bases noted. Cholecystectomy noted. Unenhanced liver, spleen, pancreas, and adrenal glands are normal. Right nephrectomy bed is unremarkable. At the anterior aspect of the left renal superior pole, there is a 2.8 cm x 2 cm x 1.9 cm. Hounsfield units of 44 are noted. Left renal interpolar level calyectasis is present no radiopaque left collecting system calculus. Fibroid involvement of the uterus noted. Diverticulosis of the colon noted. No ascites or pelvic free fluid. Urinary bladder is unremarkable. No bowel obstruction. Appendix is normal. No extraluminal gas. Diastasis of the rectus muscle to the level of the umbilicus again noted. Severe endplate sclerosis at L4-5 is present with vacuum phenomenon. Minimal anterolisthesis of L4 relation L5 is present. Moderate L3-4 disc space narrowing with vacuum phenomenon noted. Facet joint degenerative changes of the low lumbar spine are noted bilaterally. Impression: Interval development of a left renal superior pole lesion which may represent complex cysts or low-attenuation mass is noted. Further evaluation with ultrasound recommended. Diverticulosis. No suspicious acute process. Right nephrectomy bed is unremarkable. PQRS Compliance Statement: One or more of the following individualized dose reduction techniques were utilized for this examination: 1. Automated exposure control 2. Adjustment of the mA and/or kV according to patient size 3. Use of iterative reconstruction technique Electronically signed by: Dave Nunez MD (12/19/2018 4:40 PM) [facility] Course & Med Decision Making Course & Med Decision Making Pertinent Labs and Imaging studies reviewed. (See chart for details) Has been having intermittent abd pain. Will get labs, urine, CT scan. Patient is agreeable. CT scans shows lesion of left renal pole. Will get ultrasound for further evaluation. Labs show slightly elevated LFT's, with bilirubin elevated at 1.1. Creatinine is at baseline. Ultrasound shows simple cyst on Kidney. Discussed results with patient. Patient has continued to be without pain in ER. If pain starts again discussed coming back to ER or following up outpatient with primary care. Patient is agreeable to this plan. Dragon Disclaimer Huberon Disclaimer This electronic medical record was generated, in whole or in part, using a voice recognition dictation system. Departure Departure Impression: Primary Impression: Abdominal pain Disposition: HOME, SELF-CARE Condition: STABLE Referrals: BLANCA BAINS MD (PCP) Patient Instructions: Abdominal Pain (Nonspecific) Additional Instructions: Thank you for visiting [facility]. We appreciate you trusting us with your care. If any additional problems come up don't hesitate to return to visit us. Please follow up with your primary care provider so they can plan additional care if needed and know about the problem that you had. If symptoms worsen come back to the Emergency Department. Any concerning symptoms that start such as chest pain, shortness of Air, weakness or numbness on one side of the body, running high fevers or any other concerning symptoms return to the ER. If pain starts again return to ER or see primary care physician. Problem Qualifiers Primary Impression: Abdominal pain Abdominal location: unspecified location Qualified Codes: R10.9 - Unspecified abdominal pain HERMINIO ALMANZA APRN Dec 19, 2018 14:57
[2018-12-19 15:29] LABS: BASO # 0.1 x10^3/uL (0.0-0.2); BASO % 1 % (0-3); EOS % 1 % (0-3); HEMATOCRIT 46.6 % (36.0-47.0); HEMOGLOBIN 15.4 g/dL (12.0-15.5); LYMPH % 21 % (24-48); MEAN CORPUSCULAR HEMOGLOBIN 29 pg (25-35); MEAN CORPUSCULAR HGB CONC 33 g/dL (31-37); MEAN CORPUSCULAR VOLUME 89 fL (79-100); MONO # 0.5 x10^3/uL (0.0-1.1); MONO % 12 % (0-9); NEUT % 65 % (31-73); PLATELET COUNT 211 x10^3/uL (140-400); RED BLOOD COUNT 5.26 x10^6/uL (3.50-5.40); RED CELL DISTRIBUTION WIDTH 13.8 % (11.5-14.5); WHITE BLOOD COUNT 4.7 x10^3/uL (4.0-11.0)
[2018-12-19 15:51] LABS: CALCIUM 9.8 mg/dL (8.5-10.1); CREATININE 2.2 mg/dL (0.6-1.0); GFR 26.2; POTASSIUM 4.2 mmol/L (3.5-5.1)
[2018-12-19 15:56] LABS: ALBUMIN 3.6 g/dL (3.4-5.0); ALBUMIN/GLOBULIN RATIO 0.8 (1.0-1.7); TOTAL BILIRUBIN 1.1 mg/dL (0.2-1.0); TOTAL PROTEIN 7.9 g/dL (6.4-8.2)
--- NOTE | 2018-12-19 16:43 | RAD ---
Examination: CT ABDOMEN PELVIS WO CONTRAST History: Abdominal pain Comparison/Correlation: 09/16/2017 CT abdomen and pelvis without contrast Findings: Axial images of the abdomen and pelvis were obtained without contrast. Sagittal and coronal reformatted images were provided. Due to low GFR, IV contrast was not provided. Centrilobular emphysematous involvement of the lung bases noted. Cholecystectomy noted. Unenhanced liver, spleen, pancreas, and adrenal glands are normal. Right nephrectomy bed is unremarkable. At the anterior aspect of the left renal superior pole, there is a 2.8 cm x 2 cm x 1.9 cm. Hounsfield units of 44 are noted. Left renal interpolar level calyectasis is present no radiopaque left collecting system calculus. Fibroid involvement of the uterus noted. Diverticulosis of the colon noted. No ascites or pelvic free fluid. Urinary bladder is unremarkable. No bowel obstruction. Appendix is normal. No extraluminal gas. Diastasis of the rectus muscle to the level of the umbilicus again noted. Severe endplate sclerosis at L4-5 is present with vacuum phenomenon. Minimal anterolisthesis of L4 relation L5 is present. Moderate L3-4 disc space narrowing with vacuum phenomenon noted. Facet joint degenerative changes of the low lumbar spine are noted bilaterally. Impression: Interval development of a left renal superior pole lesion which may represent complex cysts or low-attenuation mass is noted. Further evaluation with ultrasound recommended. Diverticulosis. No suspicious acute process. Right nephrectomy bed is unremarkable. PQRS Compliance Statement: One or more of the following individualized dose reduction techniques were utilized for this examination: 1. Automated exposure control 2. Adjustment of the mA and/or kV according to patient size 3. Use of iterative reconstruction technique Electronically signed by: Dave Nunez MD (12/19/2018 4:40 PM) [facility]
--- NOTE | 2018-12-19 17:51 | RAD ---
Renal ultrasound 12/19/2018 CLINICAL HISTORY: History of right nephrectomy. Abnormality seen involving the superior pole of the left kidney on a CT scan from earlier today. TECHNIQUE: A real-time ultrasound examination of both kidneys and the urinary bladder was performed. Multiple images were obtained. FINDINGS: Comparison is made to the patient's CT scan of the abdomen and pelvis performed earlier today. The right kidney is not visualized consistent with a nephrectomy. The left kidney is normal in size. It measures 10.1 cm in length. A 1.8 cm simple cyst is seen involving the superior/midpole of the left kidney which corresponds to the abnormality seen on the patient's CT scan. No solid mass is seen. There is no evidence of hydronephrosis. The urinary bladder is distended with urine. No abnormality is seen. IMPRESSION: 1.8 cm simple cyst is involving the superior/midpole of the left kidney which corresponds to the abnormality seen on the patient's CT scan. Electronically signed by: Nabeel Odonnell MD (12/19/2018 5:48 PM) [facility]
[2018-12-19 18:29] LABS: BILIRUBIN,URINE NEGATIVE (NEG); CLARITY,URINE CLEAR; COLOR,URINE YELLOW; NITRITE,URINE NEGATIVE (NEG); PROTEIN,URINE NEGATIVE (NEG-TRACE)
[2018-12-19 18:40] LABS: SQUAMOUS EPITHELIAL CELL,UR MOD /LPF
[2018-12-19 18:41] LABS: BACTERIA,URINE 0 /HPF (0-FEW); RBC,URINE 0 /HPF (0-2); WBC,URINE RARE /HPF (0-4)
[2018-12-19 19:00] VITALS: BP 154/74
== END 2018-12-19 19:23 | disposition home or self-care (01) ==
LOC: ER 13:13
DX: R10.9 Unspecified abdominal pain (principal); I10 Essential (primary) hypertension; E03.9 Hypothyroidism, unspecified; I48.91 Unspecified atrial fibrillation; Z90.49 Acquired absence of other specified parts of digestive tract; Z90.5 Acquired absence of kidney; Z88.0 Allergy status to penicillin
CPT/HCPCS: 36415; 74176; 76775; 80053; 81001; 83690; 85025; 99285-25